=== PATIENT | female | born 1985 | race Asian ===

== ENCOUNTER → 2018-02-07 10:34 | Outpatient (CLI) | payer OTHER, MEDICAID, SELFPAY ==
--- NOTE | 2018-02-07 | DI.US.S_ITS ---
PROCEDURE: US OB LIMITED INDICATIONS: SIZE LESS THAN DATES OUTSIDE/PRIOR DATING DATA: Last menstrual period (LMP): 06/13/2017. LMP-based estimated date of delivery (DEMETRIA): 03/20/2018. First dating scan (date and location): 08/18/2017. Estimated date of delivery (DEMETRIA) from first dating scan: 03/15/2018. TECHNIQUE: Real-time scanning was performed of the fetus, with image documentation and biometric measurements. Endovaginal scanning: None required COMPARISON: [facility], OB LIMITED, 01/24/2018, 7:38. FINDINGS: General: A single living intrauterine gestation is present. Presentation: Vertex. Placenta: Placental position is anterior, without previa. Amniotic fluid index: 20.1 cm, normal range is 5-24 cm. heart rate: 143 beats per minute. Maternal cervical canal: Not measured biometrics: Biparietal diameter: 32 weeks 3 days Head circumference: 33 weeks 3 days Abdominal circumference: 32 weeks 3 days Femur length: 33 weeks 3 days Estimated gestational age from initial scan: 34 weeks 6 days Composite gestational age from present scan: 33 weeks, 2 weeks behind schedule Estimated weight and percentile: 2053 g at the 6th percentile Measurement variability for biometric dating: +/- 7 days from 14 weeks to 15 weeks 6 days gestation, +/- 10 days from 16 weeks to 21 weeks 6 days gestation, +/- 2 weeks from 22 weeks to 27 weeks 6 days gestation, +/- 3 weeks for 28 weeks gestation or later. weight reference: 4500 g or EFW >90/95% is considered macrosomia or large for gestational age. EFW <10% is small for gestational age. EFW 5% or less is considered intra-uterine growth restriction. Other: Not applicable. IMPRESSION: Single, live intrauterine gestation at 33.0 weeks gestational age compared to projected age of 34 weeks 6 days. Estimated body weight at the 6 th percentile. High normal volume of amniotic fluid. Dictated by: Carlos Velazquez M.D. on 02/07/2018 at 11:45 Approved by: Carlos Velazquez M.D. on 02/07/2018 at 11:48
== END ==
PROVIDERS: Family Provider Family Medicine; PCP Family Medicine; Visit Provider Family Medicine
DX: Z34.93 Encounter for supervision of normal pregnancy, unspecified, third trimester (principal); Z3A.33 33 weeks gestation of pregnancy
CPT/HCPCS: 76815

== ENCOUNTER 2018-02-15 15:00 | Observation (INO) | payer OTHER, MEDICAID, SELFPAY | END 2018-02-15 16:00 | disposition home or self-care (01) | PROVIDERS: Admitting Provider Family Medicine; Family Provider Family Medicine; PCP Family Medicine; Visit Provider Family Medicine | DX: Z34.83 Encounter for supervision of other normal pregnancy, third trimester (principal); Z3A.36 36 weeks gestation of pregnancy | CPT/HCPCS: 59025; 87081; G0378; G0379 ==

== ENCOUNTER 2018-02-21 13:44 | Outpatient (CLI) | payer OTHER, MEDICAID, SELFPAY | END 2018-02-21 14:44 | disposition home or self-care (01) | LOC: LABOR 14:01 → OB 02-22 14:52 | PROVIDERS: Family Provider Family Medicine; PCP Family Medicine; Visit Provider Family Medicine | DX: O36.5930 Maternal care for other known or suspected poor fetal growth, third trimester, not applicable or unspecified (principal); Z3A.36 36 weeks gestation of pregnancy | CPT/HCPCS: 59025; G0378; G0379 ==

== ENCOUNTER 2018-02-28 12:19 | Observation (INO) | payer OTHER, MEDICAID, SELFPAY | END 2018-02-28 13:16 | disposition home or self-care (01) | PROVIDERS: Admitting Provider Family Medicine; Family Provider Family Medicine; PCP Family Medicine; Visit Provider Family Medicine | DX: Z34.83 Encounter for supervision of other normal pregnancy, third trimester (principal); Z3A.37 37 weeks gestation of pregnancy | CPT/HCPCS: 59025; G0378; G0379 ==

== ENCOUNTER 2018-03-08 09:25 | Outpatient (CLI) | payer OTHER, MEDICAID, SELFPAY ==
--- NOTE | 2018-03-08 10:31 | DI.US.S_ITS ---
PROCEDURE: US OB LIMITED INDICATIONS: EFW, ANN-MARIE BPP OUTSIDE/PRIOR DATING DATA: Last menstrual period (LMP): 06/13/2017. LMP-based estimated date of delivery (DEMETRIA): 03/20/2018. First dating scan (date and location): 08/18/2017. Estimated date of delivery (DEMETRIA) from first dating scan: 03/15/2018. TECHNIQUE: Real-time scanning was performed of the fetus, with image documentation and biometric measurements. Endovaginal scanning: No COMPARISON: [facility], OB LIMITED, 01/24/2018, 7:38. [facility], OB LIMITED, 02/07/2018, 10:47. FINDINGS: General: A single living intrauterine gestation is present. Presentation: Vertex. Placenta: Placental position is anterior, without previa. Amniotic fluid index: 12.0 cm, normal range is 5-24 cm. heart rate: The 132 beats per minute. Maternal cervical canal: Not well-seen biometrics: Biparietal diameter: 8.0 cm; 32 weeks 1 day Head circumference: 33 cm; 37 weeks 2 days Abdominal circumference: 32.2 cm; 36 weeks 1 day Femur length: 7.5 cm; 30 weeks 1 day Estimated gestational age from initial scan: 39 weeks 0 days Composite gestational age from present scan: 36 weeks 0 days Estimated weight and percentile: 2900 g; 11 percentile Measurement variability for biometric dating: +/- 7 days from 14 weeks to 15 weeks 6 days gestation, +/- 10 days from 16 weeks to 21 weeks 6 days gestation, +/- 2 weeks from 22 weeks to 27 weeks 6 days gestation, +/- 3 weeks for 28 weeks gestation or later. weight reference: 4500 g or EFW >90/95% is considered macrosomia or large for gestational age. EFW <10% is small for gestational age. EFW 5% or less is considered intra-uterine growth restriction. Other: Of note, the head is suboptimally visualized secondary to lack of fluid around the head as well as engagement within the pelvis. Biophysical profile score of 2 points for tone, 2 points for movement, 2 points for respiration and 2 points for amniotic fluid. IMPRESSION: 1. Single living IUP redemonstrated and interval growth is lower limits of normal with the estimated weight at the 11 percentile. 2. The head is suboptimally visualized and difficult to measure secondary to lack of surrounding fluid and head engagement. Within these limits, the biparietal diameter is discordant in relation to the head circumference which again is likely related to technique and head engagement. 3. Normal biophysical profile score 8 out of 8 possible points. 4. No cord Doppler performed. Dictated by: Darion WARD Interpreted: Shawna Leslie MD on 03/08/2018 at 11:43 Approved by: Shawna Leslie MD, PhD on 03/08/2018 at 12:03
== END 2018-03-08 11:30 | disposition home or self-care (01) ==
LOC: LABOR 10:39 → OB 03-09 09:01
PROVIDERS: Family Provider Family Medicine; PCP Family Medicine; Visit Provider Family Medicine
DX: Z34.83 Encounter for supervision of other normal pregnancy, third trimester (principal); Z3A.39 39 weeks gestation of pregnancy
CPT/HCPCS: 59025; 59050; 76815; 76819; G0378; G0379

== ENCOUNTER 2018-03-16 07:27 | Inpatient (IN) | payer OTHER, MEDICAID, SELFPAY ==
[2018-03-16 09:05] LABS: Add Manual Diff / Slide Review NO; Basophils Percent Auto 0.7 % (0-2); Eosinophils Percent Auto 0.6 % (2-4); Hematocrit 37.3 % (36-46); Hemoglobin 12.8 g/dL (12.0-16.0); Lymphocytes Percent Auto 26.8 % (25-40); Mean Corpuscular HGB Conc 34.4 % (30-36); Mean Corpuscular Hemoglobin 31.2 PG (26-34); Mean Corpuscular Volume 90.8 fL (80-100); Monocytes Percent Auto 7.9 % (3-14); Neutrophils Absolute Auto 7400 /uL (3000-5900); Platelet Count 238 X10^3/uL (150-400); Red Cell Distribution Width 12.9 % (11.6-14.8); White Blood Cell Count 11.6 X10^3/uL (4.5-11.0)
--- NOTE | 2018-03-16 13:19 | PM.OBPRVD ---
Delivery date: 03/16/18 Induction method: none Delivery monitor: external FHT and external uterine Route of delivery: forceps Indication for instrumentation: nonreassuring FHR tracing Laceration description: Perineal - 2nd Degree Delivery repair: vicryl Estimated blood loss (mL): 300 Anesthesia type: Epidural Complications: none Narrative: Identifying data: is a 32-year-old at 40 and 1 7 weeks estimated gestational age based on early 1st trimester ultrasound and LMP. She had a previous history of delivery and therefore she was treated with Jewell injections until 37 weeks gestational. She had otherwise unremarkable . Baby was measuring small and so NSTs weekly were done as well as fluid assessments. Patient came in in spontaneous labor with spontaneous rupture of membranes Stage I lasted 2 hr and 15 min. Patient developed cramping and uterine contractions at approximately 4:00 a.m. on the day of delivery. She contacted the doctor on-call was instructed to come in. When she arrived to Labor and delivery at 7:30 a.m. she had spontaneous rupture membranes of clear fluid. This was 4 hr and 31 min prior to delivery. She was GBS negative and no antibiotics were given. External tocometer heart monitor were used throughout this stage. Patient was rapidly progressing with strong contraction and requesting an epidural. Epidural was placed starting at 10:20 a.m. and finished at 10:30 a.m.. There was excellent analgesia. heart tones baseline in the 140s with moderate variability and accelerations. After the epidural there were prolonged deceleration for 4-5 minutes with slow recovery to baseline. This corresponded with maternal hypotension in the 80s to low 90s systolic blood pressure. Mom was repositioned was given IV fluid given oxygen and baby recovered. Baby continued intermittently to have spontaneous D cells for 2-4 minutes. There was good variability even within the deceleration and then baby would recover and show moderate variability with a baseline in the 140s. Patient was rapidly progressing had right-sided cervix 9 cm dilated at that time and presented. Patient was noted to be complete at 11:45 a.m. and he began pushing at 11:48 a.m.. There continue to be the sellar radiations into the 60s with slow recovery in between contractions and elevated heart rate to the 150s with contractions. Baby was coming down quickly after patient became complete. Stage II lasted 13 min. Baby had repeated decelerations into the 60s with pushing and even when not pushing and Dr. Lomeli was consulted for forceps. Forceps were applied without difficulty as baby was in the left occiput anterior position. And due to a heart rate in the 60s baby was delivered with forceps forceps were taking now off and baby was mom pushed for 1 more push for the head to be delivered. There was no nuchal cord as was suspected. With some difficulty the anterior shoulder was delivered then the posterior shoulder and baby was placed on mom's chest. Apgars were 8 at 1 min and 9 at 5 min. There was terminal meconium at delivery. Stage III lasted 24 min Spontaneous vaginal delivery of an intact placenta. Placenta was small with central cord insertion and three-vessel cord but moderately to severely calcified placenta. There was a 3 vessel cord. Cord was small. There was a second-degree perineal lacerations. There were no sidewall lacerations. There were no cervical lacerations. The perineal laceration was repaired in the usual fashion with 2 III 0 Vicryl. The Pitocin was run in. At the time of this dictation both mom and baby are in stable condition Plan for aftercare: Routine post care GBS negative O positive, rubella immune
--- NOTE | 2018-03-16 13:37 | PM.OBHP.1 ---
OB HPI Date/Time Date of admission: 03/16/18 Date Patient Seen: 03/16/18 Time Patient Seen: 11:00 History of Present Illness Chief complaint: Observation of Labor : 2 Para: 1 Estimated Date of Delivery: 03/15/18 Estimated Gestational Age (weeks): Forty Narrative: Paul Kaur is a 32 year old female who presents in spontaneous labor with contractions starting at 5:00 a.m. this morning. Patient spontaneous rupture of membranes of clear fluid at 7:30 a.m. which she presented to labor and delivery and rapid increase in pain. She was 2 cm 90% effaced and -2 station on presentation to Labor and delivery. care was begun early on. She gained 20 lb. Her blood pressures were stable. Baby was measuring small and so weekly ANN-MARIE is NSTs were performed which were all normal. Patient has a previous history of a 34 week delivery so she was treated with Jewell three-week 37. She had a level 2 ultrasound because of concern for cleft palate which was normal. She had testing but they were unable to do nuchal translucency but her blood work was normal. Serology O positive, antibody screen negative, her or Lynn immune, varicella nonimmune, VDRL hepatitis B hepatitis C chlamydia gonorrhea group B beta strep all negative HIV negative glucose tolerance test 113 she received a Tdap 12/27/2017 and a flu shot 09/28/2017 her urine culture was negative. Patient had urinary retention with both her pregnancies during 1st trimester and required indwelling catheter Past medical history remarkable for gastroesophageal reflux disease and nephrolithiasis Past Ob history is remarkable for 06/28/2015 at 33 weeks 3 days gestation she had a normal spontaneous vaginal delivery after 2-1/2 hours of labor at [facility] delivering a 4 lb 9.7 oz male who is doing well. She did not have an epidural Evaluation Evaluation Laboratory results: Laboratory Tests 03/16/18 03/16/18 08:37 08:37 WBC 11.6 H RBC 4.10 Hgb 12.8 Hct 37.3 MCV 90.8 MCH 31.2 MCHC 34.4 RDW 12.9 Plt Count 238 Neut % (Auto) 64.0 Lymph % (Auto) 26.8 Brule % (Auto) 7.9 Eos % (Auto) 0.6 L Baso % (Auto) 0.7 Neut # (Auto) 7400 H Blood Type O Positive Antibody Screen Negative PFSH Social History marital status: number of children: 1 household members: family lives independently: Yes housing: house pets and animals: No occupational status: employed current occupational exposures/hazards: No Smoking Status: Never smoker Meds Home Medications Medication Instructions Recorded Confirmed Type cefuroxime axetil 500 mg PO BID #0 09/17/17 History Exam Narrative Exam Narrative: Afebrile vital signs are stable HEENT: Unremarkable Neck: Supple without masses Chest: Clear to auscultation Cor: Regular rate and rhythm without murmur Abdomen: Positive bowel sounds, soft, gravid, estimated weight about 6 and 0.5 lb Extremities: No edema, pulses intact, DTRs intact Objective Labs Result Diagrams: 03/16/18 08:37 Labs: Laboratory Results - last 24 hr 03/16/18 03/16/18 08:37 08:37 WBC 11.6 H RBC 4.10 Hgb 12.8 Hct 37.3 MCV 90.8 MCH 31.2 MCHC 34.4 RDW 12.9 Plt Count 238 Neut % (Auto) 64.0 Lymph % (Auto) 26.8 Brule % (Auto) 7.9 Eos % (Auto) 0.6 L Baso % (Auto) 0.7 Neut # (Auto) 7400 H Blood Type O Positive Antibody Screen Negative Assessment and Plan Plan: Plan: 32-year-old at 40 and 1 7 weeks estimated gestational age in active labor now 9 cm dilated admitted with an epidural with previously category 1 tracing now category 2 with deep decelerations but good recovery Plan: Continue to watch closely. Continue with oxygen and external monitors and positional changes and epidural. GBS negative, O-positive
[2018-03-16] MEDS: OXYCODONE/ACETAMINOPHEN 5/325 TABLET 2 TAB PO (15:10)
[2018-03-16] MEDS: IBUPROFEN 600 MG TABLET PO ×2 (15:46→22:15)
[2018-03-16] MEDS: DERMOPLAST SPRAY 20% 60 ML 1 SPRAY TOP (15:47)
[2018-03-16 17:27] VITALS: BP 137/73
--- NOTE | 2018-03-17 | PATH_ITS ---
[facility] Accession Number: [id number] . 01 Material submitted: . SEGEMENTS OF RIGHT AND LEFT FALLOPIAN TUBES . 02 Diagnosis: Segments of Right and Left Fallopian Tubes, Bilateral Tubal Ligation: Complete cross-sections of segments of fallopian tube x2. MRV/03/23/2018 . 02 Electronically signed: . Christi Srinivasan MD, Pathologist NPI- [id number] . 01 Gross description: . Received in formalin, labeled , Paul and segments of right and left fallopian tubes and consists of two segments of garcia-moses cylindrical tissue consistent with fallopian tube, 1.8 cm in length by 0.5 cm in diameter and 2.0 cm in length by 0.5 cm in diameter. The outer surface of the longer segment is inked black. The tissues are sectioned with petroleum products sales representative sections submitted in cassette A1. (KAILASH:[id number]) /MRV . 02 Pathologist provided ICD-10: Z30.2 . 02 CPT . 858411 Performed at: [address] [facility] [address], [place], [place] [id number] MD Scar Herrmann MD Phone: [phone] Performed at: [address] [facility] [place] [address] [place], [place] [id number] MD Nabeel Draper MD Phone: [phone]
[2018-03-17 06:50] LABS: Add Manual Diff / Slide Review NO; Basophils Percent Auto 0.1 % (0-2); Eosinophils Percent Auto 0.5 % (2-4); Hematocrit 31.7 % (36-46); Hemoglobin 10.7 g/dL (12.0-16.0); Lymphocytes Percent Auto 18.7 % (25-40); Mean Corpuscular HGB Conc 33.8 % (30-36); Mean Corpuscular Hemoglobin 30.7 PG (26-34); Mean Corpuscular Volume 90.7 fL (80-100); Monocytes Percent Auto 5.6 % (3-14); Neutrophils Absolute Auto 9900 /uL (3000-5900); Neutrophils Percent Auto 75.1 % (50-75); Platelet Count 209 X10^3/uL (150-400); Red Cell Distribution Width 13.1 % (11.6-14.8); White Blood Cell Count 13.2 X10^3/uL (4.5-11.0)
[2018-03-17 08:56] VITALS: BP 120/62
[2018-03-17 09:01] VITALS: BP 137/73
--- NOTE | 2018-03-17 09:26 | PM.PREOP ---
Pre-operative Note Interval Note Pre-op Check: History & Physical Reviewed by Physician
--- NOTE | 2018-03-17 10:36 | SUR.OPER ---
Supine on padded OR bed, head on pillow, arms secured on padded arm boards at <90 degrees abduction, legs uncrossed, safety belt at thigh, tape over blanket over lower legs.
[2018-03-17 10:48] VITALS: BP 87/50; PULSE 92; RESP 16; TEMP 36.9; O2SAT 97
--- NOTE | 2018-03-17 10:51 | P.OP_ITS ---
Operative Date/Time/Diagnoses - Date of procedure: 03/17/18 Time of procedure: 10:48 Pre-op diagnosis: Multiparity Desires permanent sterilization Post-op diagnosis: same Procedure: Procedures Operation Date: 03/17/18 09:45 <No data on this case meets the specified criteria> tubal ligation Indications: Multiparity Desires permanent sterilization Surgeon: Briana Mitchell Anesthesia Type: Spinal and Local Operative Notes Findings: Uterus at 1 finger breaths below U Normal tubes and ovaries Closure Type: primary Specimen(s): portion of left tube and portion of right tube Estimated blood loss (mL): 3 Blood products transfused: none Procedure in detail: After informed consent was obtained, the patient was taken to the operating room where she was placed in the seated position. After spinal anesthesia was administered she was placed in the dorsal supine position , and prepped and draped in the usual sterile fashion. A time-out was performed. 2 Allis clamps were placed 2 cm apart just below the umbilical fold. 6 cc of 0.5% Marcaine with epinephrine were injected between the 2 Allis clamps. A 1-1/2 cm incision was made. This was carried through to the fascia. The peritoneum was grasped between 2 hemostats and entered sharply with the Metzenbaum scissors. The left tube and ovary were identified and brought to the incision. The left tube was grasped with a Pavan and carried out to the fimbriated end. 2[address] to the distal end a 2 cm segment of tube was ligated x2 with 0 plain chromic. A 1 cm segment of tube was excised. The ends of the tube were cauterized for hemostasis. This was repeated on the patient's right tube. Hemostasis was achieved. The fascia was closed with 0 Vicryl in a running fashion. The subcutaneous layer was irrigated with warm normal saline. 3 simple interrupted sutures were placed in the subcutaneous layer to reapproximate. The skin was closed with 4 0 undyed Vicryl in a subcuticular fashion. Steri-Strips, 2 x 2, and op site were placed. Sponge, lap, and instrument counts were correct x2. The patient tolerated the procedure well, and was taken to PACU in stable condition. Complications: none Post-operative Condition: stable Disposition: PACU ([facility])
[2018-03-17] MEDS: BUPIVACAINE 0.5% W/ EPI (PF) 30 ML VIAL INJ (10:56)
[2018-03-17 11:02] VITALS: BP 94/58; PULSE 90; RESP 16; O2SAT 97
[2018-03-17 11:08] VITALS: BP 94/54; PULSE 85; RESP 16; TEMP 36.7; O2SAT 97
[2018-03-17] MEDS: IBUPROFEN 600 MG TABLET PO ×2 (12:57→21:22)
--- NOTE | 2018-03-17 17:57 | P.PNOB_ITS ---
Subjective - OB Interval history: Feeling good without concerns. Eating well. decreased vaginal bleeding. breast feeding going great tubal ligation at 945 Patient comments: pain well controlled Gaston baby status: doing well feeding status: exclusively breast feeding Date Patient Seen: 03/17/18 Time Patient Seen: 08:20 Exam Vital Signs (past 8 hours): - 03/17/18 10:48 03/17/18 11:02 03/17/18 11:08 Temperature 98.5 F 98.0 F Pulse Rate 92 H 90 85 Respiratory Rate 16 16 16 Blood Pressure 87/50 L 94/58 L 94/54 L Pulse Oximetry 97 97 97 Oxygen Delivery Method Room Air Narrative Exam Narrative: Afebrile vital signs are stable Chest: Clear to auscultation bilaterally Cor: Regular rate and rhythm without murmur Abdomen: Uterus is firm well below the umbilicus, nontender Extremity: no edema, dtr intact Objective Labs Result Diagrams: 03/17/18 06:33 Labs: Laboratory Results - last 24 hr 03/17/18 06:33 WBC 13.2 H RBC 3.50 L Hgb 10.7 L Hct 31.7 L MCV 90.7 MCH 30.7 MCHC 33.8 RDW 13.1 Plt Count 209 Neut % (Auto) 75.1 H Lymph % (Auto) 18.7 L Mayes % (Auto) 5.6 Eos % (Auto) 0.5 L Baso % (Auto) 0.1 Neut # (Auto) 9900 H Assessment & Plan Plan day: 1 plan OB: routine care Comments: routine care tubal ligation today home tomorrow Time Spent With Patient Total time spent is greater than 50% in coordination of care (as documented) at patient's floor/unit and/or counseling patient: less than 15 minutes
[2018-03-17] MEDS: LANOLIN OINT 7 GM 1 APPLIC TOP (19:44)
[2018-03-18] MEDS: PRENATAL VIT,CALC/IRON/FOLIC 1 TABLET 1 TAB PO (08:30)
[2018-03-18] MEDS: IBUPROFEN 600 MG TABLET PO (08:30)
[2018-03-18] MEDS: DOCUSATE 250 MG CAPSULE PO (08:36)
--- NOTE | 2018-03-18 10:56 | P.DS_ITS ---
History of Present Illness Date Patient Seen: 03/18/18 Time Patient Seen: 10:53 Chief complaint: Observation of Labor Discharge Providers Date of admission: 03/16/18 07:27 Primary care physician: Mariella Valdez MD Consults: 03/16/18 13:14 Consult to [employer] Principal Routine Comment: Discharge provider: Mariella Valdez MD Summary Discharge Diagnosis: Term gestation, status post forceps assisted vaginal Delivery. Bilateral tubal ligation done by Dr. Mitchell on 03/17/2018 Unremarkable course. Patient tolerating p.o. without difficulty, in urinating, tolerating pain with Motrin and small amount of Percocet Hospital Course: Unremarkable course Status at Discharge Functional status at discharge: independent ambulation Overall status at discharge: patient is not back to baseline Time Spent with Patient Greater than 30 minutes Exam Vital Signs (past 8 hours): Oxygen Delivery Method Room Air Narrative Exam Narrative: Afebrile, vital signs are stable, alert and oriented x3 Chest: Clear to auscultation bilaterally Cor: Regular rate and rhythm without murmur Abdomen: Positive bowel sounds x4, uterus firm nontender below the umbilicus. Incision clean and dry with dressing in place Extremities: No edema. DTRs 3+ bilateral patella Objective Labs Result Diagrams: 03/17/18 06:33 Discharge Plan Discharge Plan Patient Disposition: Home, Self-Care Discharge Med Rec/Prescriptions Prescriptions: New oxycodone-acetaminophen 5-325 mg Tablet 1 tab PO Q30MIN PRN (Reason: Mild or moderate pain) Qty: 20 RF: 0 ibuprofen 600 mg Tablet 600 mg PO Q6HR PRN (Reason: Pain, Mild (1-3)) Qty: 60 RF: 1 Continue ferrous sulfate 325 mg (65 mg iron) tablet 325 mg PO DAILY RF: 0 PNV,calcium [id number] acid [ Plus (calcium carb)] 27 mg iron- 1 mg tablet 1 tab PO DAILY RF: 0 Discontinued ranitidine HCl 150 mg tablet 150 mg PO DAILY RF: 0 Provider Discharge Instructions Diet: Diet as Tolerated Activity: Pelvic rest, no heavy lifting Wound Care Report to your healthcare provider any signs of infection, such as:: chills, fever, night sweats, increased pain and unusual drainage Discharge Data Primary Care Provider: Mariella Valdez Attending Provider: Mariella Valdez Admit Date/Time: 03/16/18 07:27
== END 2018-03-18 14:05 | disposition home or self-care (01) | DRG 560 ==
PROVIDERS: Obstetrics & Gynecology; Admitting Provider Family Medicine; Family Provider Family Medicine; PCP Family Medicine; Visit Provider Family Medicine
PROC: (CPT 58605; principal; 2018-03-17 09:45)
DX: O76 Abnormality in fetal heart rate and rhythm complicating labor and delivery (principal); Z3A.40 40 weeks gestation of pregnancy; Z37.0 Single live birth; O26.53 Maternal hypotension syndrome, third trimester; O70.1 Second degree perineal laceration during delivery
CPT/HCPCS: 01967; 36415; 58605; 59025; 59050; 76815; 84112; 85025; 86850; 86900; 86901; G0379; J3010

== ENCOUNTER → 2018-11-22 12:14 | Outpatient (REF) | payer OTHER, MEDICAID, SELFPAY | LOC: LAB 12:14 | PROVIDERS: Family Provider Family Medicine; PCP Family Medicine; Visit Provider Family Medicine | DX: R50.9 Fever, unspecified (principal); R05 Cough | CPT/HCPCS: 87400 ==

== ENCOUNTER → 2021-01-22 07:40 | Outpatient (CLI) | payer OTHER, MEDICAID, SELFPAY ==
--- NOTE | 2021-01-22 | DI.US.S_ITS ---
PROCEDURE: US ABDOMEN COMPLETE INDICATIONS: ABDOMINAL PAIN AND DIARRHEA TECHNIQUE: Real-time scanning was performed of the abdominal and retroperitoneal organs, with image documentation. COMPARISON: None. FINDINGS: Liver: Liver is normal in size and homogeneous in echotexture. Gallbladder: Normally distended gallbladder. No gallbladder wall thickening or pericholecystic fluid. No sludge or gallstone identified. Biliary ducts: Normal caliber intrahepatic and extrahepatic biliary ducts. Pancreas: Visualized portions of the pancreas are sonographically normal. Spleen: Spleen is normal in size and homogeneous in echotexture. Kidneys: Normal size and appearance of both kidneys. No shadowing calculus or hydronephrosis. Aorta: Visualized aorta is normal in caliber at less than 3 cm. Iliacs: Proximal common iliac arteries are normal in caliber at less than 2.5 cm. IVC: Intrahepatic inferior vena cava is patent. Miscellaneous: No free abdominal fluid. IMPRESSION: No acute finding. Dictated by: Jesse Hercules M.D. on 01/22/2021 at 9:23 Approved by: Jesse Hercules M.D. on 01/22/2021 at 9:25
== END ==
PROVIDERS: Family Provider Family Medicine; PCP Family Medicine; Referring Provider Family Medicine; Visit Provider Family Medicine
DX: R10.9 Unspecified abdominal pain (principal); R19.7 Diarrhea, unspecified
CPT/HCPCS: 76700

== ENCOUNTER → 2021-06-15 07:09 | Outpatient (CLI) | payer OTHER, MEDICAID, SELFPAY ==
--- NOTE | 2021-06-15 | DI.US.S_ITS ---
PROCEDURE: US RENAL COMPLETE INDICATIONS: POSSIBLE URINARY RETENTION TECHNIQUE: Real-time scanning was performed of the kidneys and bladder, with image documentation. COMPARISON: None. FINDINGS: Kidneys: Kidneys are normal in size. Right kidney measures 11.5 cm long; left kidney measures 10.5 cm long. Right renal cortical thickness is 1.2 cm; left renal cortical thickness is 1.3 cm. Renal cortical echotexture is normal. No hydronephrosis or nephrolithiasis. No suspicious solid mass lesions. Bladder: Pre-void bladder volume is 51 mL. Post-void residual is 0 mL. Pre-void images demonstrate no intraluminal masses or stones. On pre-void images, bilateral ureteral jets are noted with color Doppler interrogation. (Of note, ureteral jets may not be detectable in up to 25% of cases due to insufficient differences in specific gravity between ureteral and bladder urine). Miscellaneous: No free pelvic fluid. IMPRESSION: No urinary retention at time of exam. No obstruction. Dictated by: Sofy Mukherjee M.D. on 06/15/2021 at 10:22 Approved by: Sofy Mukherjee M.D. on 06/15/2021 at 10:23
== END ==
PROVIDERS: Family Provider Family Medicine; PCP Family Medicine; Referring Provider Family Medicine; Visit Provider Family Medicine
DX: R33.9 Retention of urine, unspecified (principal); R31.21 Asymptomatic microscopic hematuria; R10.9 Unspecified abdominal pain
CPT/HCPCS: 76770

== ENCOUNTER → 2021-07-13 06:37 | Outpatient (CLI) | payer OTHER, MEDICAID, SELFPAY ==
--- NOTE | 2021-07-13 07:04 | DI.CT.S_ITS ---
PROCEDURE: CT ABDOMEN PELVIS WO/W CON INDICATIONS: URINARY RETENTION, HEMATURIA TECHNIQUE: After the administration of oral contrast, 5 mm thick sections acquired from the diaphragms to the iliac crests. After the administration of intravenous contrast, 5 mm thick sections acquired from the diaphragms to the symphysis. 5 mm thick coronal and sagittal reformats were acquired. For radiation dose reduction, the following was used: automated exposure control, adjustment of mA and/or kV according to patient size. COMPARISON: May 17, 2016. FINDINGS: Image quality: Excellent. ABDOMEN: Lung bases: Lung bases are clear. Heart size is normal. Solid organs: Liver is normal in size and enhancement. Gallbladder demonstrates no wall thickening or calcified gallstones. Biliary system is non-dilated. Pancreas enhances normally. Spleen is normal in size and enhancement. No adrenal nodules. Symmetric enhancement without evidence of obstructive uropathy. No perinephric stranding. 3.1 mm nonobstructive calculus in the right lower pole, slightly larger compared to the prior study. 5.5 mm hypoattenuating lesion in the left lower pole, most consistent with a cyst. Bowel and peritoneum: Stomach, small and large bowel loops are normal in caliber and wall thickness. Normal appendix. No free fluid or air. Nodes and vessels: No retroperitoneal or mesenteric adenopathy by size criteria. Aorta and inferior vena are normal in caliber. Miscellaneous: No ventral hernias. PELVIS: Genitourinary: Bladder wall thickness is normal. 10.3 mm hypoattenuating lesion in the right adnexa, most consistent with an ovarian cyst. Miscellaneous: No inguinal hernias or adenopathy. Bones: No suspicious bony lesions. No vertebral body compression fractures. IMPRESSION: Right nonobstructive nephrolithiasis. Dictated by: Babak Kaur M.D. on 07/13/2021 at 8:03 Approved by: Babak Kaur M.D. on 07/13/2021 at 8:13
== END ==
PROVIDERS: Family Provider Family Medicine; PCP Family Medicine; Referring Provider Family Medicine; Visit Provider Family Medicine
DX: R31.9 Hematuria, unspecified (principal); R33.9 Retention of urine, unspecified; N20.0 Calculus of kidney
CPT/HCPCS: 74178; Q9967

== ENCOUNTER 2021-09-08 07:30 | Outpatient (RCR) | payer OTHER, MEDICAID, SELFPAY ==
--- NOTE | 2021-08-10 16:21 | PT.OPPOC ---
Physical, Occupational & Speech Therapy At [facility] Current Diagnoses Unspecified urinary incontinence (08/10/21) Retention of urine, unspecified (08/10/21) Visit Care Team Role Provider Type Mariella Valdez MD Attending Provider Physician Family Provider Primary Care Provider Referring Provider Specialty: Family Practice Address: [address] [place] [address], [facility] Email: [email or web address] Plan Of Care PT-OP-T Assessment and Plan Start: 07/28/21 15:06 Freq: Status: Active Protocol: Document 08/10/21 07:30 AMB (Rec: 08/11/21 16:21 AMB [email or web address]) Physical Therapy Assessment Rehab Potential Rehabilitation Potential Good Evaluation Complexity Number of Personal Factors/Comorbidities 1-2 Number of Body Systems Impaired 3 Clinical Presentation at Evaluation Evolving Impairments Impairments Functional Activities,Pain, Strength Goals Three Impairment Strength Short Term Goal (STG) Paul will contract her pelvic floor for 10 seconds without breath or abdominal compensations. STG Duration 5 weeks Longterm Goal (LTG) Paul will contract her pelvic floor while in standing at work to reduce her urge. LTG Duration 10 weeks Two Impairment Frequency Short Term Goal (STG) Paul will be able to reduce her urinary frequency at work to voiding once every 2 hours. STG Duration 4 weeks Pathological Technician Goal (LTG) Paul will be able to wait 3 hours to void without abdominal pain. LTG Duration 10 weeks One Impairment Pain Short Term Goal (STG) Paul will lift 20# from the floor to waist height without abdominal/pelvic floor pain. STG Duration 4 weeks Pathological Technician Goal (LTG) Paul will return to intercourse of her choice without abdominal pain. LTG Duration 10 weeks Assessment Summary Assessment Paul attends physical therapy with urinary frequency and urgency. This is causing her significant discomfort for her and difficulty at work . Pt has mild/moderate prolapse and significant pelvic floor weakness that is exacerbating this. She will benefit in behavioral training to reduce her frequency as well as manual therapy and strengthening to reduce her pain. Physical Therapy Plan Frequency and Duration Frequency of Treatment 1x/Week Duration of Treatment 10 weeks Plan of Care Start Date 08/10/21 Plan of Care End Date 10/19/21 Therapeutic Interventions Therapeutic Interventions Home Exercise Program,Manual Therapy,Neuromuscular Re- education,Soft Tissue Mobilization,Therapeutic Activities,Therapeutic Exercises Modalities Biofeedback,Cold Pack/Ice Massage,Electric Stimulation, Hot Packs Next Visit Focus/Plan Next Note Type Treatment Note Next Visit Plan pelvic floor strengthening in supine, can be with legs elevated Plan of Care Dates Plan of Care Start Date 08/10/21 Plan of Care End Date 10/19/21 Electronically Signed by: Katharine Perez, PT 08/11/21 [id number] Please Sign and Return: I have reviewed this Plan of Care and certify that the skilled therapy services above are required to meet the patient?s needs. Physician Signature Date Printed Name and Credentials Clinical Instructor Signature Printed Name and Credentials
--- NOTE | 2021-08-10 16:22 | PT.OIE ---
Current Diagnoses Unspecified urinary incontinence (08/10/21) Retention of urine, unspecified (08/10/21) Visit Care Team Role Provider Type Mariella Valdez MD Attending Provider Physician Family Provider Primary Care Provider Referring Provider Specialty: Family Practice Address: [address] [place] [address], [facility] [place], [address] Email: [email or web address] Physical Therapy Initial Evaluation PT-OP-A Visit Information Start: 07/28/21 15:06 Freq: Status: Active Protocol: Document 08/10/21 07:30 AMB (Rec: 08/11/21 15:14 AMB [email or web address]) Out-Patient Physical Therapy Visit Information Visit Information Visit Type Initial Evaluation Visit Start Time 07:30 Visit Stop Time 08:15 Total Visit Minutes 45 Visit Number 1 PT-OP-B Current Condition Start: 07/28/21 15:06 Freq: Status: Active Protocol: Document 08/10/21 07:31 AMB (Rec: 08/10/21 07:54 AMB [id number]) Current Condition History of Current Condition Onset Date 2018 Current Complaints Frequent urination, urge History of Current Condition 2018 she had a sudden difficulty urinating when at week 14 of catheterized for a week and then felt normal again. Now she is Having the urge to go to the bathroom very frequently, worst at work, better at home. Pain 2 weeks after menstruation- abdominal cramping. Lifting heavy increases abdominal pain. Forceps delivery with seconds with extended pushing. Has kidney stones trying to drink a lot of fluid. Going to the bathroom every hour. Urgency after 30 minutes- a little bit of urine at that point but has abdominal pain if she doesn't go to the bathroom. Type 4 bowel movement 2/day- was having bowel urgency but better since taking fiber supplements. Denies leaking. Denies trigger for urgency other than the time since she has last gone. Prior Functional Status Baseline Function- ADL's Independent Baseline Function- Mobility Independent Current Functional Impairments (Reported) Functional Limitations- ADL's Difficulty working due to urinary frequency/ abdominal pain if she tries to hold it Personal Factors Other Personal Factors That May Effect Has stopped lifting and Therapy/Recovery intercourse due to pain. Pain is cramping like afterwards, not during. PT-OP-C Subjective Start: 07/28/21 15:06 Freq: Status: Active Protocol: Document 08/10/21 07:30 AMB (Rec: 08/11/21 16:21 AMB [email or web address]) Patient Questionnaires Pelvic Pain and Urgency/Frequency Patient Symptom Scale Pelvic Pain Score 17 PT-OP-I Pelvic Floor Start: 07/28/21 15:06 Freq: Status: Active Protocol: Document 08/10/21 07:30 AMB (Rec: 08/11/21 16:21 AMB [email or web address]) Pelvic Floor Assessment Urine Pelvic Floor Surgery No Urinary Symptoms Urge Sensation,Prolapse, Incomplete Emptying,Falling Out Feeling/Heavy Leakage Size Small Leakage Cause Urge Nocturia 2 Urine Pad Type Panty Liner Bowel Bowel Movement Frequency 2x/day [place] Stool Chart Type 1-7 4 Prolapse Cystocele Grade 2 Rectocele Grade 1 Perineal Descent Resting Absent Bearing Present Contraction Ability Voluntary Contraction Weak Voluntary Relaxation Weak Manual Muscle Testing Left 1 Manual Muscle Testing Right 1 Manual Muscle Testing Anterior 1 Manual Muscle Testing Posterior 2 Muscle Endurance (Seconds) 2 Number of Quick Contractions In 10 3 Seconds Comments Pelvic Floor Comments Significant weakness at all levels of pelvic floor, worst at levator ani. Tends to over use TA. Scar tissue present at perineum. PT-OP-T Assessment and Plan Start: 07/28/21 15:06 Freq: Status: Active Protocol: Document 08/10/21 07:30 AMB (Rec: 08/11/21 16:21 AMB [email or web address]) Physical Therapy Assessment Rehab Potential Rehabilitation Potential Good Evaluation Complexity Number of Personal Factors/Comorbidities 1-2 Number of Body Systems Impaired 3 Clinical Presentation at Evaluation Evolving Impairments Impairments Functional Activities,Pain, Strength Goals Three Impairment Strength Short Term Goal (STG) Paul will contract her pelvic floor for 10 seconds without breath or abdominal compensations. STG Duration 5 weeks Internet Assessor Goal (LTG) Paul will contract her pelvic floor while in standing at work to reduce her urge. LTG Duration 10 weeks Two Impairment Frequency Short Term Goal (STG) Paul will be able to reduce her urinary frequency at work to voiding once every 2 hours. STG Duration 4 weeks Internet Assessor Goal (LTG) Paul will be able to wait 3 hours to void without abdominal pain. LTG Duration 10 weeks One Impairment Pain Short Term Goal (STG) Paul will lift 20# from the floor to waist height without abdominal/pelvic floor pain. STG Duration 4 weeks Internet Assessor Goal (LTG) Paul will return to intercourse of her choice without abdominal pain. LTG Duration 10 weeks Assessment Summary Assessment Paul attends physical therapy with urinary frequency and urgency. This is causing her significant discomfort for her and difficulty at work . Pt has mild/moderate prolapse and significant pelvic floor weakness that is exacerbating this. She will benefit in behavioral training to reduce her frequency as well as manual therapy and strengthening to reduce her pain. Physical Therapy Plan Frequency and Duration Frequency of Treatment 1x/Week Duration of Treatment 10 weeks Plan of Care Start Date 08/10/21 Plan of Care End Date 10/19/21 Therapeutic Interventions Therapeutic Interventions Home Exercise Program,Manual Therapy,Neuromuscular Re- education,Soft Tissue Mobilization,Therapeutic Activities,Therapeutic Exercises Modalities Biofeedback,Cold Pack/Ice Massage,Electric Stimulation, Hot Packs Next Visit Focus/Plan Next Note Type Treatment Note Next Visit Plan pelvic floor strengthening in supine, can be with legs elevated
--- NOTE | 2021-08-17 15:58 | PT.OTN ---
Current Diagnoses Unspecified urinary incontinence (08/17/21) Retention of urine, unspecified (08/17/21) Physical Therapy Treatment Note PT-OP-A Visit Information Start: 07/28/21 15:06 Freq: Status: Active Protocol: Document 08/17/21 07:30 AMB (Rec: 08/17/21 09:46 AMB [email or web address]) Out-Patient Physical Therapy Visit Information Visit Information Visit Type Treatment Note Visit Start Time 07:30 Visit Stop Time 08:15 Total Visit Minutes 45 Visit Number 2 PT-OP-B Current Condition Start: 07/28/21 15:06 Freq: Status: Active Protocol: Document 08/10/21 07:31 AMB (Rec: 08/10/21 07:54 AMB [id number]) Current Condition History of Current Condition Onset Date 2017 Current Complaints Frequent urination, urge History of Current Condition 2017 she had a sudden difficulty urinating when at week 14 of catheterized for a week and then felt normal again. Now she is Having the urge to go to the bathroom very frequently, worst at work, better at home. Pain 2 weeks after menstruation- abdominal cramping. Lifting heavy increases abdominal pain. Forceps delivery with seconds with extended pushing. Has kidney stones trying to drink a lot of fluid. Going to the bathroom every hour. Urgency after 30 minutes- a little bit of urine at that point but has abdominal pain if she doesn't go to the bathroom. Type 4 bowel movement 2/day- was having bowel urgency but better since taking fiber supplements. Denies leaking. Denies trigger for urgency other than the time since she has last gone. Prior Functional Status Baseline Function- ADL's Independent Baseline Function- Mobility Independent Current Functional Impairments (Reported) Functional Limitations- ADL's Difficulty working due to urinary frequency/ abdominal pain if she tries to hold it Personal Factors Other Personal Factors That May Effect Has stopped lifting and Therapy/Recovery intercourse due to pain. Pain is cramping like afterwards, not during. PT-OP-C Subjective Start: 07/28/21 15:06 Freq: Status: Active Protocol: Document 08/17/21 07:30 AMB (Rec: 08/17/21 09:46 AMB [email or web address]) OP-PT Subjective Patient Comments Patient Comments Pt had a good week with being able to go to the bathroom maybe every 2-3 hours, but then Tuesday was going every 30 minutes again, unsure why. Pt notices bilateraly painful hips associated with her menstrual cycle as well. PT-OP-I Pelvic Floor Start: 07/28/21 15:06 Freq: Status: Active Protocol: Document 08/10/21 07:30 AMB (Rec: 08/11/21 16:21 AMB [email or web address]) Pelvic Floor Assessment Urine Pelvic Floor Surgery No Urinary Symptoms Urge Sensation,Prolapse, Incomplete Emptying,Falling Out Feeling/Heavy Leakage Size Small Leakage Cause Urge Nocturia 2 Urine Pad Type Panty Liner Bowel Bowel Movement Frequency 2x/day [place] Stool Chart Type 1-7 4 Prolapse Cystocele Grade 2 Rectocele Grade 1 Perineal Descent Resting Absent Bearing Present Contraction Ability Voluntary Contraction Weak Voluntary Relaxation Weak Manual Muscle Testing Left 1 Manual Muscle Testing Right 1 Manual Muscle Testing Anterior 1 Manual Muscle Testing Posterior 2 Muscle Endurance (Seconds) 2 Number of Quick Contractions In 10 3 Seconds Comments Pelvic Floor Comments Significant weakness at all levels of pelvic floor, worst at levator ani. Tends to over use TA. Scar tissue present at perineum. PT-OP-Q Treatments Start: 07/28/21 15:06 Freq: Status: Active Protocol: Document 08/17/21 07:30 AMB (Rec: 08/17/21 15:58 AMB [email or web address]) Therapeutic Exercises Supine Exercises 1 Supine Exercise Name roll in roll out Resistance #3 t band Reps/Minutes 2x20 Comments cued breath, more difficult with roll out Neuro Re-Education Treatment Other Activities sEMG Details supine- long holds quick flicks PT-OP-T Assessment and Plan Start: 07/28/21 15:06 Freq: Status: Active Protocol: Document 08/17/21 07:39 AMB (Rec: 08/17/21 08:08 AMB [id number]) Physical Therapy Assessment Goals Three Impairment Strength Short Term Goal (STG) Paul will contract her pelvic floor for 10 seconds without breath or abdominal compensations. STG Duration 5 weeks Mcc Goal (LTG) Paul will contract her pelvic floor while in standing at work to reduce her urge. LTG Duration 10 weeks Two Impairment Frequency Short Term Goal (STG) Paul will be able to reduce her urinary frequency at work to voiding once every 2 hours. STG Duration 4 weeks Mcc Goal (LTG) Paul will be able to wait 3 hours to void without abdominal pain. LTG Duration 10 weeks One Impairment Pain Short Term Goal (STG) Paul will lift 20# from the floor to waist height without abdominal/pelvic floor pain. STG Duration 4 weeks Mcc Goal (LTG) Paul will return to intercourse of her choice without abdominal pain. LTG Duration 10 weeks Assessment Summary Assessment Baseline 3, avg 6, max 11 for long holds. Quick flicks: 11 for max, avg 7, baseline 4. Started with roll in roll out exercises and pt did well. Did well with reassurance she is doing well with exercises. Physical Therapy Plan Next Visit Focus/Plan Next Note Type Treatment Note Next Visit Plan Review roll in roll out, review urge suppression, look at hip pain with menstruation.
--- NOTE | 2021-08-28 11:49 | PT.OTN ---
Current Diagnoses Unspecified urinary incontinence (08/28/21) Retention of urine, unspecified (08/28/21) Physical Therapy Treatment Note PT-OP-A Visit Information Start: 07/28/21 15:06 Freq: Status: Active Protocol: Document 08/28/21 07:25 AMB (Rec: 08/28/21 08:18 AMB [id number]) Out-Patient Physical Therapy Visit Information Visit Information Visit Type Treatment Note Visit Start Time 07:30 Visit Stop Time 08:15 Total Visit Minutes 45 Visit Number 3 PT-OP-B Current Condition Start: 07/28/21 15:06 Freq: Status: Active Protocol: Document 08/10/21 07:31 AMB (Rec: 08/10/21 07:54 AMB [id number]) Current Condition History of Current Condition Onset Date 2017 Current Complaints Frequent urination, urge History of Current Condition 2017 she had a sudden difficulty urinating when at week 14 of catheterized for a week and then felt normal again. Now she is Having the urge to go to the bathroom very frequently, worst at work, better at home. Pain 2 weeks after menstruation- abdominal cramping. Lifting heavy increases abdominal pain. Forceps delivery with seconds with extended pushing. Has kidney stones trying to drink a lot of fluid. Going to the bathroom every hour. Urgency after 30 minutes- a little bit of urine at that point but has abdominal pain if she doesn't go to the bathroom. Type 4 bowel movement 2/day- was having bowel urgency but better since taking fiber supplements. Denies leaking. Denies trigger for urgency other than the time since she has last gone. Prior Functional Status Baseline Function- ADL's Independent Baseline Function- Mobility Independent Current Functional Impairments (Reported) Functional Limitations- ADL's Difficulty working due to urinary frequency/ abdominal pain if she tries to hold it Personal Factors Other Personal Factors That May Effect Has stopped lifting and Therapy/Recovery intercourse due to pain. Pain is cramping like afterwards, not during. PT-OP-C Subjective Start: 07/28/21 15:06 Freq: Status: Active Protocol: Document 08/28/21 07:25 AMB (Rec: 08/28/21 08:18 AMB [id number]) OP-PT Subjective Patient Comments Patient Comments Some days are good, some days are still having to go frequently. PT-OP-I Pelvic Floor Start: 07/28/21 15:06 Freq: Status: Active Protocol: Document 08/10/21 07:30 AMB (Rec: 08/11/21 16:21 AMB [email or web address]) Pelvic Floor Assessment Urine Pelvic Floor Surgery No Urinary Symptoms Urge Sensation,Prolapse, Incomplete Emptying,Falling Out Feeling/Heavy Leakage Size Small Leakage Cause Urge Nocturia 2 Urine Pad Type Panty Liner Bowel Bowel Movement Frequency 2x/day [place] Stool Chart Type 1-7 4 Prolapse Cystocele Grade 2 Rectocele Grade 1 Perineal Descent Resting Absent Bearing Present Contraction Ability Voluntary Contraction Weak Voluntary Relaxation Weak Manual Muscle Testing Left 1 Manual Muscle Testing Right 1 Manual Muscle Testing Anterior 1 Manual Muscle Testing Posterior 2 Muscle Endurance (Seconds) 2 Number of Quick Contractions In 10 3 Seconds Comments Pelvic Floor Comments Significant weakness at all levels of pelvic floor, worst at levator ani. Tends to over use TA. Scar tissue present at perineum. PT-OP-Q Treatments Start: 07/28/21 15:06 Freq: Status: Active Protocol: Document 08/28/21 07:25 AMB (Rec: 08/28/21 08:18 AMB [id number]) Therapeutic Exercises Supine Exercises 3 Supine Exercise Name PF control with leg raise Reps/Minutes 10 2 Supine Exercise Name piriformis stretch Resistance bilateral Reps/Minutes 30 1 Supine Exercise Name roll in roll out Resistance #3 t band Reps/Minutes 2x20 Comments cued breath, more difficult with roll out Standing Exercises 3 Standing Exercise Name long holds Reps/Minutes 10 2 Standing Exercise Name quick flicks Reps/Minutes 10 1 Standing Exercise Name mini squat with PF Reps/Minutes 5 Comments challenging PT-OP-T Assessment and Plan Start: 07/28/21 15:06 Freq: Status: Active Protocol: Document 08/28/21 07:25 AMB (Rec: 08/28/21 08:18 AMB [id number]) Physical Therapy Assessment Goals Three Impairment Strength Short Term Goal (STG) Paul will contract her pelvic floor for 10 seconds without breath or abdominal compensations. STG Duration 5 weeks Snf Goal (LTG) Paul will contract her pelvic floor while in standing at work to reduce her urge. LTG Duration 10 weeks Two Impairment Frequency Short Term Goal (STG) Paul will be able to reduce her urinary frequency at work to voiding once every 2 hours. STG Duration 4 weeks Meat Sales And Storage Manager Goal (LTG) Paul will be able to wait 3 hours to void without abdominal pain. LTG Duration 10 weeks One Impairment Pain Short Term Goal (STG) Paul will lift 20# from the floor to waist height without abdominal/pelvic floor pain. STG Duration 4 weeks Snf Goal (LTG) Paul will return to intercourse of her choice without abdominal pain. LTG Duration 10 weeks Assessment Summary Assessment Paul quite challenged with standing mini squats. Backed off to just standing long holds/quick flicks. Physical Therapy Plan Next Visit Focus/Plan Next Visit Plan Follow up with standing exercises, and with urologist appt
--- NOTE | 2021-09-01 08:12 | PT.OTN ---
Current Diagnoses Unspecified urinary incontinence (09/01/21) Retention of urine, unspecified (09/01/21) Physical Therapy Treatment Note PT-OP-A Visit Information Start: 07/28/21 15:06 Freq: Status: Active Protocol: Document 09/01/21 07:33 AMB (Rec: 09/01/21 07:54 AMB [id number]) Out-Patient Physical Therapy Visit Information Visit Information Visit Type Treatment Note Visit Start Time 07:30 Visit Stop Time 08:15 Total Visit Minutes 45 Visit Number 4 PT-OP-B Current Condition Start: 07/28/21 15:06 Freq: Status: Active Protocol: Document 08/10/21 07:31 AMB (Rec: 08/10/21 07:54 AMB [id number]) Current Condition History of Current Condition Onset Date 2017 Current Complaints Frequent urination, urge History of Current Condition 2017 she had a sudden difficulty urinating when at week 14 of catheterized for a week and then felt normal again. Now she is Having the urge to go to the bathroom very frequently, worst at work, better at home. Pain 2 weeks after menstruation- abdominal cramping. Lifting heavy increases abdominal pain. Forceps delivery with seconds with extended pushing. Has kidney stones trying to drink a lot of fluid. Going to the bathroom every hour. Urgency after 30 minutes- a little bit of urine at that point but has abdominal pain if she doesn't go to the bathroom. Type 4 bowel movement 2/day- was having bowel urgency but better since taking fiber supplements. Denies leaking. Denies trigger for urgency other than the time since she has last gone. Prior Functional Status Baseline Function- ADL's Independent Baseline Function- Mobility Independent Current Functional Impairments (Reported) Functional Limitations- ADL's Difficulty working due to urinary frequency/ abdominal pain if she tries to hold it Personal Factors Other Personal Factors That May Effect Has stopped lifting and Therapy/Recovery intercourse due to pain. Pain is cramping like afterwards, not during. PT-OP-C Subjective Start: 07/28/21 15:06 Freq: Status: Active Protocol: Document 09/01/21 07:33 AMB (Rec: 09/01/21 07:54 AMB [id number]) OP-PT Subjective Patient Comments Patient Comments Was prescribed oxybutinin by urologist, follow up in 3 months. PT-OP-I Pelvic Floor Start: 07/28/21 15:06 Freq: Status: Active Protocol: Document 08/10/21 07:30 AMB (Rec: 08/11/21 16:21 AMB [email or web address]) Pelvic Floor Assessment Urine Pelvic Floor Surgery No Urinary Symptoms Urge Sensation,Prolapse, Incomplete Emptying,Falling Out Feeling/Heavy Leakage Size Small Leakage Cause Urge Nocturia 2 Urine Pad Type Panty Liner Bowel Bowel Movement Frequency 2x/day [place] Stool Chart Type 1-7 4 Prolapse Cystocele Grade 2 Rectocele Grade 1 Perineal Descent Resting Absent Bearing Present Contraction Ability Voluntary Contraction Weak Voluntary Relaxation Weak Manual Muscle Testing Left 1 Manual Muscle Testing Right 1 Manual Muscle Testing Anterior 1 Manual Muscle Testing Posterior 2 Muscle Endurance (Seconds) 2 Number of Quick Contractions In 10 3 Seconds Comments Pelvic Floor Comments Significant weakness at all levels of pelvic floor, worst at levator ani. Tends to over use TA. Scar tissue present at perineum. PT-OP-Q Treatments Start: 07/28/21 15:06 Freq: Status: Active Protocol: Document 09/01/21 07:33 AMB (Rec: 09/01/21 07:54 AMB [id number]) Therapeutic Exercises Supine Exercises 2 Supine Exercise Name piriformis stretch Resistance bilateral Reps/Minutes 30 1 Supine Exercise Name roll in roll out Resistance #3 t band Reps/Minutes 2x20 Comments cued breath, more difficult with roll out Sitting Exercises 1 Sitting Exercise Name rolling in rolling out Comments able to feel lift a bit better Standing Exercises 2 Standing Exercise Name quick flicks Reps/Minutes 10 PT-OP-T Assessment and Plan Start: 07/28/21 15:06 Freq: Status: Active Protocol: Document 09/01/21 07:33 AMB (Rec: 09/01/21 07:54 AMB [id number]) Physical Therapy Assessment Goals Three Impairment Strength Short Term Goal (STG) Paul will contract her pelvic floor for 10 seconds without breath or abdominal compensations. STG Duration 5 weeks Knuckle Bender Goal (LTG) Paul will contract her pelvic floor while in standing at work to reduce her urge. LTG Duration 10 weeks Two Impairment Frequency Short Term Goal (STG) Paul will be able to reduce her urinary frequency at work to voiding once every 2 hours. STG Duration 4 weeks Knuckle Bender Goal (LTG) Paul will be able to wait 3 hours to void without abdominal pain. LTG Duration 10 weeks One Impairment Pain Short Term Goal (STG) Paul will lift 20# from the floor to waist height without abdominal/pelvic floor pain. STG Duration 4 weeks Usp Goal (LTG) Paul will return to intercourse of her choice without abdominal pain. LTG Duration 10 weeks Assessment Summary Assessment Reviewed roll in roll out and stretches due to pt not having time to exercise over the weekend, did well with that then progressed into standing. Physical Therapy Plan Next Visit Focus/Plan Next Visit Plan Follow up with standing exercises, and with urologist appt
--- NOTE | 2021-09-08 08:18 | PT.OTN ---
Current Diagnoses Unspecified urinary incontinence (09/08/21) Retention of urine, unspecified (09/08/21) Physical Therapy Treatment Note PT-OP-A Visit Information Start: 07/28/21 15:06 Freq: Status: Active Protocol: Document 09/08/21 07:30 AMB (Rec: 09/08/21 08:18 AMB [id number]) Out-Patient Physical Therapy Visit Information Visit Information Visit Type Treatment Note Visit Start Time 07:30 Visit Stop Time 08:15 Total Visit Minutes 45 Visit Number 5 PT-OP-B Current Condition Start: 07/28/21 15:06 Freq: Status: Active Protocol: Document 08/10/21 07:31 AMB (Rec: 08/10/21 07:54 AMB [id number]) Current Condition History of Current Condition Onset Date 2017 Current Complaints Frequent urination, urge History of Current Condition 2017 she had a sudden difficulty urinating when at week 14 of catheterized for a week and then felt normal again. Now she is Having the urge to go to the bathroom very frequently, worst at work, better at home. Pain 2 weeks after menstruation- abdominal cramping. Lifting heavy increases abdominal pain. Forceps delivery with seconds with extended pushing. Has kidney stones trying to drink a lot of fluid. Going to the bathroom every hour. Urgency after 30 minutes- a little bit of urine at that point but has abdominal pain if she doesn't go to the bathroom. Type 4 bowel movement 2/day- was having bowel urgency but better since taking fiber supplements. Denies leaking. Denies trigger for urgency other than the time since she has last gone. Prior Functional Status Baseline Function- ADL's Independent Baseline Function- Mobility Independent Current Functional Impairments (Reported) Functional Limitations- ADL's Difficulty working due to urinary frequency/ abdominal pain if she tries to hold it Personal Factors Other Personal Factors That May Effect Has stopped lifting and Therapy/Recovery intercourse due to pain. Pain is cramping like afterwards, not during. PT-OP-C Subjective Start: 07/28/21 15:06 Freq: Status: Active Protocol: Document 09/08/21 07:30 AMB (Rec: 09/08/21 08:18 AMB [id number]) OP-PT Subjective Patient Comments Patient Comments Was able to go through her work day with 2-3 voids. PT-OP-I Pelvic Floor Start: 07/28/21 15:06 Freq: Status: Active Protocol: Document 08/10/21 07:30 AMB (Rec: 08/11/21 16:21 AMB [id number]) Pelvic Floor Assessment Urine Pelvic Floor Surgery No Urinary Symptoms Urge Sensation,Prolapse, Incomplete Emptying,Falling Out Feeling/Heavy Leakage Size Small Leakage Cause Urge Nocturia 2 Urine Pad Type Panty Liner Bowel Bowel Movement Frequency 2x/day Dewey Stool Chart Type 1-7 4 Prolapse Cystocele Grade 2 Rectocele Grade 1 Perineal Descent Resting Absent Bearing Present Contraction Ability Voluntary Contraction Weak Voluntary Relaxation Weak Manual Muscle Testing Left 1 Manual Muscle Testing Right 1 Manual Muscle Testing Anterior 1 Manual Muscle Testing Posterior 2 Muscle Endurance (Seconds) 2 Number of Quick Contractions In 10 3 Seconds Comments Pelvic Floor Comments Significant weakness at all levels of pelvic floor, worst at levator ani. Tends to over use TA. Scar tissue present at perineum. PT-OP-Q Treatments Start: 07/28/21 15:06 Freq: Status: Active Protocol: Document 09/08/21 07:30 AMB (Rec: 09/08/21 08:18 AMB [id number]) Therapeutic Exercises Sitting Exercises 1 Sitting Exercise Name rolling in rolling out Comments able to feel lift a bit better Standing Exercises 3 Standing Exercise Name long holds Reps/Minutes 10 2 Standing Exercise Name quick flicks Reps/Minutes 10 1 Standing Exercise Name mini squat with PF Reps/Minutes 5 Comments challenging PT-OP-T Assessment and Plan Start: 07/28/21 15:06 Freq: Status: Active Protocol: Document 09/08/21 07:30 AMB (Rec: 09/08/21 08:18 AMB [id number]) Physical Therapy Assessment Goals Three Impairment Strength Short Term Goal (STG) Paul will contract her pelvic floor for 10 seconds without breath or abdominal compensations. STG Duration 5 weeks Technical Project Coordinator Goal (LTG) Paul will contract her pelvic floor while in standing at work to reduce her urge. LTG Duration 10 weeks Two Impairment Frequency Short Term Goal (STG) Paul will be able to reduce her urinary frequency at work to voiding once every 2 hours. STG Duration MET Technical Project Coordinator Goal (LTG) Paul will be able to wait 3 hours to void without abdominal pain. LTG Duration MET One Impairment Pain Short Term Goal (STG) Paul will lift 20# from the floor to waist height without abdominal/pelvic floor pain. STG Duration MET Detention Goal (LTG) Paul will return to intercourse of her choice without abdominal pain. LTG Duration MET Assessment Summary Assessment Reviewed HEP and encouraged Paul to exercise at home. She is now able to void 2-3x in her 8-9 hour work day and has returned to lifting her daughter and does not have pain with intercourse. Physical Therapy Plan Discharge Physical Therapy Discharge Reasons Goals Met
== END 2021-10-20 08:52 ==
LOC: PHYS 07:30
PROVIDERS: Family Provider Family Medicine; PCP Family Medicine; Referring Provider Family Medicine; Visit Provider Family Medicine
DX: R33.9 Retention of urine, unspecified (principal); R32 Unspecified urinary incontinence
CPT/HCPCS: 97110; 97112; 97162

== ENCOUNTER → 2022-01-21 20:19 | Outpatient (ROUT) | payer OTHER, MEDICAID, SELFPAY ==
[2022-01-21 21:18] LABS: COVID-19 CEPHEID PCR (VTM/NP) Negative (Negative)
== END ==
PROVIDERS: Family Provider Family Medicine; PCP Family Medicine; Visit Provider Family Medicine
DX: Z20.822 Contact with and (suspected) exposure to COVID-19 (principal); J02.9 Acute pharyngitis, unspecified
CPT/HCPCS: U0003; U0005

== ENCOUNTER → 2022-04-08 07:13 | Outpatient (CLI) | payer OTHER, MEDICAID, SELFPAY ==
--- NOTE | 2022-04-08 | DI.US.S_ITS ---
PROCEDURE: US RENAL COMPLETE INDICATIONS: PAIN; LEFT KIDNEY CYST ON CT TECHNIQUE: Real-time scanning was performed of the kidneys and bladder, with image documentation. COMPARISON: [facility], US, US RENAL COMPLETE, 06/15/2021, 7:27. CT 07/13/2021 FINDINGS: Kidneys: Right kidney measures 11.3 cm. No hydronephrosis. There is a 4 mm calculus in the lower pole. The left kidney measures 11 cm. No hydronephrosis. Cortex measures 1.8 cm in thickness. No calculi, mass, or cyst is identified. Bladder: Prevoid volume of the bladder is 34 cc. Postvoid volume is negligible. Bladder is otherwise within normal limits. Miscellaneous: No free pelvic fluid. IMPRESSION: Hypoattenuating lesion seen on prior CT is not confidently identified on ultrasound. No significant mass or cyst. 4 mm right lower pole nonobstructing renal calculus. No hydronephrosis. No significant postvoid residual. Dictated by: Luis Carlos Doran M.D. on 04/08/2022 at 8:19 Approved by: Luis Carlos Doran M.D. on 04/08/2022 at 8:23
== END ==
PROVIDERS: Family Provider Family Medicine; PCP Family Medicine; Referring Provider Family Medicine; Visit Provider Family Medicine
DX: N28.1 Cyst of kidney, acquired (principal); N20.0 Calculus of kidney
CPT/HCPCS: 76770

== ENCOUNTER → 2024-07-17 07:29 | Outpatient (CLI) | payer OTHER, MEDICAID, SELFPAY ==
--- NOTE | 2024-07-17 07:33 | DI.US.S_ITS ---
PROCEDURE: US RENAL COMPLETE INDICATIONS: ABD PAIN,NEPHROLITHIASIS,RENAL CYST LEFT TECHNIQUE: Real-time scanning was performed of the kidneys and bladder, with image documentation. COMPARISON: [facility] definitively characterized., CT, CT ABDOMEN PELVIS WO/W CON, 07/13/2021, 6:58. [facility], US, US RENAL COMPLETE, 04/08/2022, 7:18. FINDINGS: Kidneys: Right kidney measures 12 cm. No hydronephrosis. 5 mm inferior pole nonobstructing calculus is seen. No solid mass. Left kidney measures 12 cm. No hydronephrosis. Inferior cortical questionable cyst measuring 1.2 cm. Bladder: Both ureteral jets were seen. No significant postvoid residual. Miscellaneous: No free pelvic fluid. IMPRESSION: 5 mm inferior pole nonobstructing calculus. Possible cortical cyst in the left inferior kidney measuring 1.2 cm, poorly seen on ultrasound, unable to further evaluate on this modality. No hydronephrosis. Both bladder ureteral jets were seen. No significant postvoid residual. Dictated by: Luis Carlos Doran M.D. on 07/17/2024 at 13:29 Approved by: Luis Carlos Doran M.D. on 07/17/2024 at 13:34
== END ==
PROVIDERS: Family Provider Family Medicine; PCP Family Medicine; Referring Provider Family Medicine; Visit Provider Family Medicine
DX: N28.1 Cyst of kidney, acquired (principal); N20.0 Calculus of kidney; R10.84 Generalized abdominal pain
CPT/HCPCS: 76770

== ENCOUNTER → 2024-08-09 15:49 | Outpatient (CLI) | payer OTHER, SELFPAY | PROVIDERS: Family Provider Family Medicine; PCP Family Medicine; Visit Provider Urology | DX: N39.0 Urinary tract infection, site not specified (principal); N32.81 Overactive bladder; N28.1 Cyst of kidney, acquired; R33.9 Retention of urine, unspecified; R35.1 Nocturia | CPT/HCPCS: 51798; 81002; 87086; 99213 ==

== ENCOUNTER → 2024-08-27 13:24 | Outpatient (CLI) | payer OTHER, SELFPAY | PROVIDERS: Family Provider Family Medicine; PCP Family Medicine; Visit Provider Urology | DX: N20.9 Urinary calculus, unspecified (principal) | CPT/HCPCS: 82365 ==

== ENCOUNTER → 2025-04-12 07:28 | Outpatient (CLI) | payer OTHER, SELFPAY ==
--- NOTE | 2025-04-12 | DI.CT.S_ITS ---
PROCEDURE: CT ABDOMEN PELVIS W CON INDICATIONS: LEFT UPPER QUADRANT PAIN TECHNIQUE: After the administration of intravenous contrast, axial sections acquired from the lung bases to the pubic symphysis. Coronal and sagittal reformats were performed. For radiation dose reduction, the following was used: automated exposure control, adjustment of mA and/or kV according to patient size. COMPARISON: None. FINDINGS: Image quality: Diagnostic. Lower Chest: No significant findings. ABDOMEN: Liver: No solid mass. Gallbladder: No radiopaque gallstones or wall thickening. Biliary ducts: No biliary dilation. Pancreas: No ductal dilation. Spleen: Size is within normal limits. Adrenal Glands: No adrenal nodules. Kidneys and Ureters: No hydronephrosis. No solid mass. No complex renal cystic lesion which requires follow up. Stomach and Bowel: Normal colonic caliber, without significant wall thickening. Moderate fecal stasis throughout the colon is seen. No abscess collection. Appendix is visualized in right lower quadrant and is within normal limits. Peritoneum: No abnormal intraperitoneal fluid. No free air. Ventral Wall: No significant ventral hernia. Abdominal Nodes: No retroperitoneal or mesenteric adenopathy by size criteria. Vessels: Aorta and inferior vena cava are normal in size. PELVIS: Pelvic Organs: Unremarkable. Bladder: No bladder wall thickening, accounting for underdistention. Pelvic Nodes: No enlarged lymph nodes. Miscellaneous: No inguinal hernias are seen. Bones: No aggressive osseous abnormality. IMPRESSION: 1. Moderate constipation. No bowel obstruction or abnormal bowel wall thickening. Normal appendix. No free fluid or free air. 2. No obstructing renal stones or hydronephrosis. No finding to explain patient's clinical symptom. Dictated by: Golden Qiu M.D. on 04/13/2025 at 23:05 Approved by: Golden Qiu M.D. on 04/13/2025 at 23:06
== END ==
PROVIDERS: Family Provider Family Medicine; PCP Family Medicine; Referring Provider Family Medicine; Visit Provider Family Medicine
DX: N20.0 Calculus of kidney (principal); K59.00 Constipation, unspecified; R10.12 Left upper quadrant pain; R10.84 Generalized abdominal pain
CPT/HCPCS: 74177; Q9967